=== PATIENT | male | born 1970 | race Native Hawaiian/Other Pacific Islander ===

== ENCOUNTER 2023-04-11 07:19 | Emergency (ER) | payer OTHER ==
[~2023-04-11] VITALS: Ht 177.8 cm; Wt 102.1 kg
[2023-04-11 07:22] VITALS: BP 149/99; TEMP 98.9
[2023-04-11 08:12] LABS: PLATELET COUNT 225 K/uL (142-355)
[2023-04-11 08:22] LABS: POTASSIUM 3.1 mmol/L (3.6-5.2)
[2023-04-11 08:36] LABS: PARTIAL THROMBOPLASTIN TIME 26.9 SECONDS (23.9-36.7)
== END 2023-04-11 10:50 | disposition home or self-care (01) ==
LOC: ED 07:19
PROVIDERS: Family Medicine
DX: S46.912A Strain of unspecified muscle, fascia and tendon at shoulder and upper arm level, left arm, initial encounter (principal); E87.6 Hypokalemia
CPT/HCPCS: 80053; 80179; 82550; 84484; 85027; 85379; 85610; 85730; 93005; 96372; 99283; J1100; J1885